=== PATIENT | female | born 1995 | race Caucasian/White ===

== ENCOUNTER 2024-07-24 12:29 | Emergency (ER) | payer MEDICAID ==
[2024-07-24] MEDS ORDERED: Sodium Chloride 0.9% 10 ML Syringe FLUSH PRN (13:21)
[2024-07-24] MEDS ORDERED: Sodium Chloride 0.9% 2.5 ML Syringe FLUSH PRN (13:21)
[2024-07-24] MEDS: Ketorolac 30 MG/ML SDV IVPUSH ONE (13:40)
[2024-07-24] MEDS: Sodium Chloride 0.9% 1,000 ML IV ONE (13:40)
[2024-07-24] MEDS: Ondansetron 4 MG/2 ML SDV IVPUSH ONE (13:40)
[2024-07-24 13:50] LABS: BASOPHILS ABSOLUTE AUTO 0.04 K/uL (0.00-0.20); BASOPHILS PERCENT AUTO 0.6 % (0.0-1.0); EOSINOPHILS ABSOLUTE AUTO 0.11 K/uL (0.00-0.45); EOSINOPHILS PERCENT AUTO 1.6 % (0.0-6.0); HEMATOCRIT 36.8 % (37.0-47.0); HEMOGLOBIN 13.2 g/dL (12.0-16.0); LYMPHOCYTES ABSOLUTE AUTO 2.21 K/uL (1.00-4.80); LYMPHOCYTES PERCENT AUTO 31.3 % (24.0-44.0); MEAN CORPUSCULAR HEMOGLOBIN 31.6 pg (28.0-32.0); MEAN CORPUSCULAR HGB CONC 35.9 g/dL (32.0-36.0); MEAN PLATELET VOLUME 9.7 fL (9.4-12.3); MONOCYTES ABSOLUTE AUTO 0.41 K/uL (0.00-0.80); MONOCYTES PERCENT AUTO 5.8 % (0.0-8.0); NEUTROPHILS ABSOLUTE AUTO 4.29 K/uL (1.80-7.70); NEUTROPHILS PERCENT AUTO 60.7 % (41.0-71.0); PLATELET COUNT,PLT 280 K/uL (150-400); RED BLOOD CELL COUNT 4.18 M/uL (4.10-5.30); WHITE BLOOD CELL COUNT,WBC 7.06 K/uL (3.9-11.3)
[2024-07-24 14:16] LABS: A/G RATIO 1.2 (0.9-1.6); ALBUMIN 3.8 g/dL (3.4-5.0); BILIRUBIN TOTAL 0.4 mg/dL (0.2-1.0); CALCIUM 9.1 mg/dL (8.5-10.1); CARBON DIOXIDE,CO2 29.7 mmol/L (21.0-32.0); CREATININE 0.8 mg/dL (0.6-1.0); EST CRCL DRUG DOSING (CG) 75.2 mL/min; POTASSIUM,K 3.8 mmol/L (3.5-5.1); PROTEIN TOTAL,TP 7.1 g/dL (6.4-8.2)
[2024-07-24 14:47] LABS: APPEARANCE,URINE CLEAR; BILIRUBIN,URINE NEGATIVE (NEGATIVE); COLOR,URINE YELLOW; GLUCOSE,URINE NEGATIVE (NEGATIVE); KETONES,URINE NEGATIVE (NEGATIVE); LEUKOCYTE ESTERASE,URINE NEGATIVE (NEGATIVE); NITRITE,URINE POSITIVE (NEGATIVE); OCCULT BLOOD,URINE NEGATIVE (NEGATIVE); PROTEIN,URINE NEGATIVE (NEGATIVE); UROBILINOGEN,URINE 0.2 EU/dL (<2.0)
[2024-07-24 14:56] LABS: BACTERIA,URINE RARE (NEGATIVE); EPITHELIAL CELLS,URINE RARE (NONE-FEW); RBC,URINE 0-1 (0-2/HPF); WBC,URINE NONE SEEN (0-5/HPF)
== END 2024-07-24 16:00 | disposition home or self-care (01) ==
LOC: MW.ED 12:29
DX: B34.9 Viral infection, unspecified (principal); Z75.8 Other problems related to medical facilities and other health care
CPT/HCPCS: 36415; 80053; 81001; 81025; 85025; 96361; 96374; 96375; 99284; 99284-25; J1885; J2405; J7030